=== PATIENT | female | born 1940 | race Caucasian/White ===

== ENCOUNTER 2017-08-10 05:25 | Inpatient (IN) ==
--- NOTE | 2017-08-10 10:04 | Pulmonology History & Physical ---
<Ken Gonzalez - Last Filed: 08/10/17 10:33> Date of Encounter: 08/10/17 Time of Encounter: 09:53 Assessment and Plan (1) GI bleed Current visit: Yes Status: Acute hgb 5.3 on admission. received 1 unit at [place]. 1 week history of melena , and 1 episode of hematoemesis. previously hosp 6-7 years ago for ulcer that was cauterized, has no follow up since. - Surgery consulted for endoscopy, will consider scope after resuscitation - 2 units of pRBC - will follow H/H closely Qualifiers: Qualified Code(s): K92.2 - Gastrointestinal hemorrhage, unspecified (2) NSTEMI (non-ST elevated myocardial infarction) Current visit: Yes Status: Acute [place] EKG ST depressions in trip-lateral leads. Trop on admission 0.10. patient self-reports a previous SC, at [place] imaging did not show previous Stent or ballooning. - serial trops ordered. (3) CLL (chronic lymphocytic leukemia) Current visit: Yes Status: Acute previous reported history of CLL. - consulted heme/onc - will consider ordering FISH CLL workup (4) Anemia Current visit: Yes Status: Acute hgb 5.3 on admission, given 1 unit of pRBC at [place] - trend h/h - 2 units of pRBC ordered Qualifiers: Qualified Code(s): D64.9 - Anemia, unspecified (5) DVT prophylaxis Current visit: Yes Status: Acute due to unknown source of bleed, will use mech vent History of Present Illness Chief complaint: progressive weakness HPI: Ms. Webb is a 77 year old female transferred from [place], 2/2 1 week history of bright red blood in bowel, 1 episode of dark blood vomit, progressively worsening weakness w/ history of CLL and Ulcers. History was gathered from patient, patient's and chart review. Patient decided to go to [facility] ED by ambulance due to excess sweating, she sweat through multiple changes of clothes, and started having trouble breathing. 1 week ago patient first developed a cough with associated Dark blood in her bowels. She had one episode of dark blood vomiting. In ability to consume food due to severe abdominal pains. Patient was hospitalized 6-7 years ago due to a peptic ulcer which was cauterized. She does not take medications at home for ulcers, and does not follow with a physician for her ulcers. She has continued abdominal pain since that admission. She only treats it with Baking soda mixed in with water which temporarily will relieve her pain. During this admission, it was found that patient has CLL, and according to patient and no treatment was considered at that time and or follow up. Patient drink multiple cups of coffee a day. denies EtOH, and quit smoking 7-8 years ago. Patient has history of joint pain which she take 2 extra strength tylenol, motrin once a week, Aleve 2x a day, and has consumed 2 bottles of Nyquil in the last week. Patient currently denies abdominal pain, but does admit to continued weakness. Past Med Surg Social Fam HX - Past Medical History Medical history: other Psychiatric history: no psych history - Social History Smoking Status: Former smoker Smokeless Tobacco Status: No Alcohol use: none Drug use: none Medications and Allergies No Known Home Drugs 08/10/17 [History] 3 Allergy/AdvReac Type Severity Reaction Status Date / Time No Known Allergies Allergy Verified 08/10/17 03:47 All Systems: A 10-system review of systems was performed and is negative for pertinent findings except as documented above in the HPI. - Constitutional Constitutional: chills, excessive sweating, lethargy, night sweats - Cardiovascular Cardiovascular: diaphoresis, dyspnea, lightheadedness, syncope, no chest pain, no edema, no irregular heart rhythm, no radiating jaw, neck or arm pain, no palpitations, no paroxysmal nocturnal dyspnea - Respiratory Respiratory: dyspnea - Gastrointestinal Gastrointestinal: no abdominal pain, no diarrhea, no fecal incontinence, no hematemesis, no hematochezia, no loose stools, no melena, no nausea, no vomiting - Genitourinary Genitourinary: no difficulty urinating, no difficulty voiding, no dysmenorrhea, no flank pain, no hematuria - Musculoskeletal Musculoskeletal: joint pain (patient reports chronic diffuse joint pain) - Neurological Neurological: dizziness, lack of coordination, weakness - Psychiatric Psychiatric: no anxiety, no depression, no mood swings, no panic attacks, no suicidal ideation - Endocrine Endocrine: cold intolerance, excessive sweating - Allergic/Immunologic Allergic/Immunologic: GI upset with certain foods Physical Examination General appearance: no acute distress, alert Eyes: nonicteric ENT: oropharynx dry Effort: normal Inspection: normal Cardiovascular: regular rate and rhythm Gastrointestinal: hypoactive bowel sounds, non-tender, non-distended Integumentary: normal Extremities: no cyanosis, no edema, pulses normal Musculoskeletal: no deformities normal mental status mood appropriate, affect normal <Celia Burton S - Last Filed: 08/10/17 18:14> Date of Encounter: 08/10/17 History of Present Illness HPI: Ms. Webb is a 77 year old female All Systems: A 10-system review of systems was performed and is negative for pertinent findings except as documented above in the HPI. Physical Examination Vital Signs: Vital Signs, Last 4 Hours Temp Pulse Resp BP Pulse Ox 08/10/17 12:00 89 14 126/60 95 08/10/17 11:50 98.1 F 08/10/17 11:00 87 18 144/65 94 08/10/17 10:30 87 08/10/17 10:00 85 20 132/60 95 08/10/17 09:44 97.9 F 83 16 143/61 99 Results - Laboratory Findings CBC and BMP: 08/10/17 11:03 08/10/17 11:03 Abnormal lab findings: Abnormal lab results WBC 56.1 K/mcL (4.3-11.1) H* 08/10/17 11:03 RBC 1.88 M/mcL (3.82-4.97) L 08/10/17 11:03 Hgb 5.7 g/dL (11.5-15.4) L* 08/10/17 11:03 Hct 19.5 % (35.3-44.9) L 08/10/17 11:03 MCV 103.7 fL (83.0-100.0) H 08/10/17 11:03 MCHC 29.2 g/dL (31.6-35.5) L 08/10/17 11:03 RDW 15.4 % (11.5-14.5) H 08/10/17 11:03 Neutrophils # 10.1 K/mcL (1.6-8.9) H 08/10/17 11:03 Lymphocytes # 46.0 K/mcL (0.6-4.6) H 08/10/17 11:03 Nucleated RBCs/100 WBC 0.7 /100 WBC (0) H 08/10/17 11:03 Smudge Cells Present (Not Present) A 08/10/17 11:03 Polychromasia 1+ (Not Present) A 08/10/17 11:03 Chloride 110 mEq/L (98-109) H 08/10/17 11:03 BUN 34 mg/dL (7-20) H D 08/10/17 11:03 BUN/Creatinine Ratio 48 (6-26) H 08/10/17 11:03 Glucose 107 mg/dL (70-99) H 08/10/17 11:03 Calcium 7.9 mg/dL (8.6-10.8) L 08/10/17 11:03 Troponin I 0.22 ng/mL (0-0.03) H* 08/10/17 11:03 Serum Total Protein 5.0 g/dL (6.0-8.3) L 08/10/17 11:03 Albumin 2.6 g/dL (3.5-5.0) L 08/10/17 11:03 TSH 0.247 mcIU/mL (0.350-4.840) L 08/10/17 11:03 - Attending Attestation I saw the patient with the resident agree with History and Physical exam findings. Labs and Radiology were reviewed Patient is spontaneously breathing on Nasal Cannula SCAGLIOLA MECHANIC: Patient is conscious oriented x3 following commands NECK : No JVD appreciated Pulmonary : Patient doesnt have any active symptoms of pneumonia or heart failure will continue wean O2 as able Cardiac : Patient is hemodynamically stable , Because of this acute blood loss anemia patient has some ischemic changes will trend troponin's most likely due to supply demand mismatch . Nutrition/GI: Patient will keep her NPO PPI . If stable will give a clear liquid diet . Consulted Endoscopist cash on delivery clerk .Will give total of 3 units will aim for HB of 8 Renal : Labs and Output reviewed Heme onc : Patient has previous diagnosis of CLL with baseline WBC count is around 41 , during this admission was 69 dropped down to 56 , patient has B symptoms concern for lymphoma transformation will consult heme onc ID : No acute issues Musculo skeletal / skin issues Disposition : Stable to the floor Code status: Full Code Family/POA:
[2017-08-10 11:20] LABS: Nucleated Red Blood Cells 0.7 /100 WBC (0)
[2017-08-10 11:22] LABS: Hematocrit 19.5 % (35.3-44.9); Mean Corpuscular HGB Conc 29.2 g/dL (31.6-35.5); Mean Corpuscular Hemoglobin 30.3 pg (28.0-33.3); Mean Corpuscular Volume 103.7 fL (83.0-100.0); Mean Platelet Volume 9.6 fL (9.4-12.4); Platelet Count 337 K/mcL (140-400); Red Blood Count 1.88 M/mcL (3.82-4.97); Red Cell Distribution Width 15.4 % (11.5-14.5)
[2017-08-10 11:32] LABS: Alanine Aminotransferase 8 Units/L (0-55); Albumin 2.6 g/dL (3.5-5.0); Albumin/Globulin Ratio 1.1 (1.1-2.2); Alkaline Phosphatase 56 Units/L (38-126); Aspartate Amino Transferase 12 Units/L (5-34); BUN/Creatinine Ratio 48 (6-26); Bilirubin,Total 0.2 mg/dL (0.2-1.2); Blood Urea Nitrogen 34 mg/dL (7-20); Calcium 7.9 mg/dL (8.6-10.8); Carbon Dioxide 22 mEq/L (19-29); Chloride 110 mEq/L (98-109); Globulin 2.4 g/dL (2.4-3.5); Glucose 107 mg/dL (70-99); Osmolality,Calculated 298 (280-300); Potassium 4.3 mEq/L (3.5-4.5); Sodium 140 mEq/L (136-145); eGFR For African Americans > 60 (> 60); eGFR For Non-African Americans > 60 (> 60)
[2017-08-10 11:33] LABS: Hemoglobin 5.7 g/dL (11.5-15.4)
[2017-08-10 11:49] LABS: Neutrophils # 10.1 K/mcL (1.6-8.9); Platelet Estimate Normal (Normal); Smudge Cells Present (Not Present)
[2017-08-10 11:50] LABS: Polychromasia 1+ (Not Present)
[2017-08-10 12:10] LABS: Albumin 2.6 g/dL (3.5-5.0); Albumin/Globulin Ratio 1.1 (1.1-2.2); Bilirubin,Direct 0.1 mg/dL (0.0-0.5); Bilirubin,Indirect 0.1 mg/dL (0.0-1.2); Bilirubin,Total 0.2 mg/dL (0.2-1.2); Globulin 2.4 g/dL (2.4-3.5)
[2017-08-10] MEDS ORDERED: 0.9 % Sodium Chloride 250 ML ONE (14:02)
[2017-08-10] MEDS ORDERED: Furosemide 40 MG/4 ML VIAL IVP ONE (16:26)
[2017-08-10] MEDS: Pantoprazole 40 MG VIAL IVP SCH (17:08)
[2017-08-11 00:53] LABS: Hematocrit 26.1 % (35.3-44.9); Hemoglobin 8.4 g/dL (11.5-15.4); Mean Corpuscular HGB Conc 32.2 g/dL (31.6-35.5); Mean Corpuscular Hemoglobin 30.3 pg (28.0-33.3); Mean Corpuscular Volume 94.2 fL (83.0-100.0); Mean Platelet Volume 9.3 fL (9.4-12.4); Platelet Count 373 K/mcL (140-400); Red Blood Count 2.77 M/mcL (3.82-4.97); Red Cell Distribution Width 16.7 % (11.5-14.5)
[2017-08-11 01:07] LABS: BUN/Creatinine Ratio 29 (6-26); Calcium 8.3 mg/dL (8.6-10.8); Carbon Dioxide 25 mEq/L (19-29); Chloride 109 mEq/L (98-109); Glucose 98 mg/dL (70-99); Osmolality,Calculated 295 (280-300); Sodium 141 mEq/L (136-145); eGFR For African Americans > 60 (> 60); eGFR For Non-African Americans > 60 (> 60)
[2017-08-11 01:08] LABS: Blood Urea Nitrogen 22 mg/dL (7-20)
[2017-08-11] MEDS: Pantoprazole 40 MG VIAL IVP SCH ×2 (06:25→17:26)
[2017-08-11] MEDS ORDERED: *HR* Morphine 2 MG/ML SYRINGE IVP PRN (07:50)
[2017-08-11] MEDS ORDERED: Acetaminophen 325 MG TABLET PO PRN (07:50)
[2017-08-11] MEDS ORDERED: *HR* OxyCODONE/APAP 5/325 TABLET PO PRN (07:50)
--- NOTE | 2017-08-11 08:00 | Internal Med Progress Note ---
Date of Encounter: 08/11/17 Time of Encounter: 07:55 - Assessment and plan (1) Acute blood loss anemia Current Visit: Yes Status: Acute Assessment and plan: Pt does have symptomatic anemia Hb improved to 8.4 after 2 U PRBC cont close monitoring H/H check Iron panel Consulted GI for possible EGD and Colonoscopy in AM Keep NPO after mid night full liquid diet cont Protonix 40mg IV BID Avoid any NSAID/ ASA / Anticoags d/c bojorquez cath Pt is medically stable to transfer to floor / tele (2) Acute GI bleeding Current Visit: Yes Status: Acute Assessment and plan: Mostly upper GI bleed.. however concerned for lower too with bright red blood per rectum consulted GI for further work up cont close monitoring (3) NSTEMI (non-ST elevated myocardial infarction) Current Visit: Yes Status: Acute Assessment and plan: Troponin trended high 0.1->0.22->0.35->0.39 Pt denied any CP actively and with in last few days EKG this morning showed NSR with VR 72, mild ST depression and T wave inversion noticed in lateral leads she may need stress test at some point will consult card for further work up will get 2 D Echo now unable to give ASA due to GI bleed (4) CLL (chronic lymphocytic leukemia) Current Visit: Yes Status: Acute Assessment and plan: Consulted Heme Onc regarding her CLL (5) DVT prophylaxis Current Visit: Yes Status: Acute Assessment and plan: on SCD's only - Subjective Interval history: Ms. Webb is a 77 year old female transferred from [place], due to 1 week history of bright red blood in bowel, 1 episode of dark blood vomit, progressively worsening weakness w/ history of CLL and gastric ulcers. pt denied of taking any ASA / blood thinner medication. She denied of any CP, however does have WHITTEN and generalized weakness. She did mentions of taking Alieve or Tylenol once a week for her low back pain. Pt happened to have severe symptomatic anemia with Hb 5.3 and elevated troponin with EKG changes. Pt did receive 2 U PRBC here now her Hb is at 8.4 This morning pt is more alert, awake and O x 3. Denied any CP. Had 1BM last night, but not bright red blood/ no melena noticed as per pt. No N/V. - Constitutional Vitals: Temp Pulse Resp BP Pulse Ox 98.5 F 73 20 137/66 98 08/11/17 04:59 08/11/17 07:00 08/11/17 07:00 08/11/17 07:00 08/11/17 07:00 General appearance: Present: A&O X 3, no acute distress, answers questions appropriately - Head Head exam: Present: atraumatic, normal inspection - Neck Neck exam general surgery: Present: supple - Respiratory Respiratory exam: Present: decreased breath sounds. Absent: rales, respiratory distress, rhonchi, wheezes - Cardiovascular Cardiovascular exam: Present: RRR, +S1, +S2. Absent: systolic murmur - GI/Abdominal GI/Abdominal exam: Present: normal bowel sounds, soft. Absent: rebound, rigid, tenderness - Extremities Exam Extremities exam: Absent: calf tenderness, pedal edema, tenderness - Back Exam Back exam: Absent: CVA tenderness (L), CVA tenderness (R) - Neurological Exam Neurological exam: Present: alert, oriented X3 - Psychiatric Psychiatric exam: Present: normal affect, normal mood - Skin Skin exam: Present: pallor Internal Medicine: Result - Labs CBC & Chem 7: 08/11/17 00:45 08/11/17 00:45 Labs: Short CBC 08/10/17 08/11/17 Range/Units 11:03 00:45 WBC 56.1 H* 63.3 H* (4.3-11.1) K/mcL Hgb 5.7 L* 8.4 L D (11.5-15.4) g/dL Hct 19.5 L 26.1 L (35.3-44.9) % Plt Count 337 373 (140-400) K/mcL Neutrophils # 10.1 H (1.6-8.9) K/mcL BMP 08/10/17 08/11/17 11:03 00:45 Sodium 140 141 Potassium 4.3 4.0 Chloride 110 H 109 Carbon Dioxide 22 25 BUN 34 H D 22 H D Creatinine 0.71 0.76 Glucose 107 H 98 Calcium 7.9 L 8.3 L Cardiac Enzymes 08/10/17 08/10/17 08/11/17 Range/Units 11:03 17:56 00:45 Troponin I 0.22 H* 0.35 H* 0.39 H* (0-0.03) ng/mL Liver Function 08/10/17 08/10/17 Range/Units 11:03 11:03 Total Bilirubin 0.2 0.2 (0.2-1.2) mg/dL Direct Bilirubin 0.1 (0.0-0.5) mg/dL AST 12 11 (5-34) Units/L ALT 8 7 (0-55) Units/L Alkaline Phosphatase 56 56 (38-126) Units/L Albumin 2.6 L 2.6 L (3.5-5.0) g/dL - VTE Documentation of Mechanical Device: Intermittent pneumatic compression device Consult Discharge Plan - Plan Referrals: NONE,PCP [Primary Care Provider] - Calvin Godwin, MATERIAL HANDLER 2ND SHIFT [Family Provider] -
[2017-08-11] MEDS ORDERED: Furosemide 40 MG/4 ML VIAL IVP SCH (09:00)
--- NOTE | 2017-08-11 10:07 | Cardiology Consult Note ---
Date of Encounter: 08/11/17 Time of Encounter: 09:45 Assessment and Plan (1) Elevated troponin Current Visit: Yes Status: Acute ECG changes and mildly elevated troponin are consistent with demand ischemia in the setting of severe anemia (Hgb 5.3 on admission). Her presentation is not consistent with plaque-rupture ACS. I agree with checking a TTE to assess her cardiac structure and function. If TTE is unremarkable, then no further cardiac testing would be necessary at this time. Discussion w patient/family: The assessment and plan as outlined above was discussed with the patient and/or family members who expressed understanding and agreement. All questions were answered. Thank you for involving us in the care of your patient. Please call with any questions. History of Present Illness Consult date: 08/11/17 Requesting physician: Herminia Chapman Consult reason: elevated troponin in setting of severe GI bleed Chief complaint: rectal bleeding History of present illness: Ms. Webb is a 77 year old female who reports rectal bleeding for the last 5 days. Upon presentation to the ED, she was found to be severely anemic with Hgb 5.3. She reports dizziness upon standing. She denies any chest pain, dyspnea, leg swelling, or other cardiac symptoms. Cardiology consulted due to ST-T wave changes on ECG and mildly elevated troponin. Patient reports having a heart attack at age 34, but denies any heart problems since then. Past Med Surg Social Fam HX - Past Medical History Medical history: other (CLL, ulcers) Psychiatric history: no psych history - Past Surgical History Surgical History: cholecystectomy, hysterectomy - Social History Smoking Status: Former smoker Smokeless Tobacco Status: No Alcohol use: none Drug use: none - Family History Mother Name: February Living Status: Age at : 78 Cause of : colon cancer Hx Family Cardiac Disorders: No Hx Family Respiratory Disorders: No Hx Family Cancer: Yes Hx Family GI Disorders: Yes Hx Family Genitourinary Disorders: No Hx Family Endocrine Disorder: No Hx Family Musculoskeletal Disorders: No Hx Family Neuromuscular Disorders: No Hx Family Neurologic Disorders: No Hx Family HEENT Disorders: No Hx Family Autoimmune Disorders: No Hx Family Reproductive Disorders: No Hx Family Psychosocial Disorders: No Hx Family Medical Disorders: No Medications and Allergies No Known Home Drugs 08/10/17 [History] 3 Allergy/AdvReac Type Severity Reaction Status Date / Time No Known Allergies Allergy Verified 08/10/17 03:47 All Systems Review: A 10-system review of systems was performed and is negative for pertinent findings except as documented above in the HPI. Physical Examination Vital Signs, Last 4 Hours Temp Pulse Resp BP Pulse Ox 08/11/17 09:00 68 17 117/48 95 08/11/17 08:00 95 12 131/71 96 08/11/17 07:58 98.2 F 08/11/17 07:30 95 08/11/17 07:00 73 20 137/66 98 General: Conversant, No Apparent Distress HEENT: Atraumatic, Normocephaly, Mucus Membranes Moist Neck: Normal carotid pulses, Other (no carotid bruits) Cardiac: Reg Rate and Rhythm, Normal S1 and S2, No Murmur Lungs: Normal Breath Sounds, No Wheeze, Rales, Rhonchi Neuro: Alert and responsive, No focal deficits noted Abdomen: Other (deferred) Skin: No rashes noted on visualized skin Extremities: No Clubbing, No Cyanosis, Other (trace to 1+ edema bilaterally) Results 08/11/17 00:45 08/11/17 00:45 Lab Results 08/10/17 08/10/17 08/10/17 11:03 11:03 11:03 WBC 56.1 H* Hgb 5.7 L* Hct 19.5 L Plt Count 337 Sodium 140 Potassium 4.3 Chloride 110 H Carbon Dioxide 22 BUN 34 H D Creatinine 0.71 Glucose 107 H Calcium 7.9 L Total Bilirubin 0.2 AST 12 ALT 8 Alkaline Phosphatase 56 Troponin I TSH 0.247 L 08/10/17 08/10/17 08/10/17 11:03 11:03 17:56 WBC Hgb Hct Plt Count Sodium Potassium Chloride Carbon Dioxide BUN Creatinine Glucose Calcium Total Bilirubin 0.2 AST 11 ALT 7 Alkaline Phosphatase 56 Troponin I 0.22 H* 0.35 H* TSH 08/11/17 08/11/17 08/11/17 00:45 00:45 00:45 WBC 63.3 H* Hgb 8.4 L D Hct 26.1 L Plt Count 373 Sodium 141 Potassium 4.0 Chloride 109 Carbon Dioxide 25 BUN 22 H D Creatinine 0.76 Glucose 98 Calcium 8.3 L Total Bilirubin AST ALT Alkaline Phosphatase Troponin I 0.39 H* TSH - EKG Interpretation EKG results cardiology: personally reviewed (sinus tachycardia with diffuse ST- T wave abnormalities, sinus rhythm with diffuse ST-T wave abnormalities) Consult Discharge Plan - Plan Referrals: NONE,PCP [Primary Care Provider] - Calvin Godwin, GROUP EXERCISE CLASS INSTRUCTOR [Family Provider] -
[2017-08-11] MEDS ORDERED: *HR* Midazolam HCl 5 MG/5 ML VIAL IVP ONE (10:43)
[2017-08-11] MEDS ORDERED: *HR* FentaNYL (PF) 100 MCG/2 ML VIAL ONE (10:44)
[2017-08-11] MEDS ORDERED: 0.9 % Sodium Chloride 1,000 ML ONE (10:44)
[2017-08-11] MEDS ORDERED: *HR* FentaNYL (PF) 100 MCG/2 ML VIAL IVP PRN (11:25)
[2017-08-11] MEDS ORDERED: *HR* Midazolam HCl 5 MG/5 ML VIAL IVP PRN (11:25)
[2017-08-11 12:11] LABS: Hematocrit 24.8 % (35.3-44.9); Hemoglobin 7.9 g/dL (11.5-15.4)
[2017-08-11 12:43] LABS: Thyroid Stimulating Hormone 1.516 mcIU/mL (0.350-4.840)
[2017-08-11 16:05] LABS: Folate 5.8 ng/mL (7.0-31.4)
[2017-08-11] MEDS: Sucralfate 1 GM TABLET PO SCH ×2 (17:26→23:21)
--- NOTE | 2017-08-11 18:18 | Oncology Inp Consult Note ---
Date of Encounter: 08/12/17 Time of Encounter: 18:16 Assessment and Plan (1) CLL (chronic lymphocytic leukemia) Status: Acute Assessment and plan: CLL likely stage 0. Did not have any CAT scan to assess for lymphadenopathy. We will do CAT scans as an outpatient No acute intervention necessary at this time (2) GI bleed Status: Acute Assessment and plan: GI bleed and acute anemia. Post 2 units of packed RBC transfusion Baseline macrocytosis. Folic acid low at 5.8. We will do anemia workup. Replace folate and iron. B12 boderline at 230. B12 1000 mcg. IM She had EGD this AM showed gastic ulcer. Avoid coffee. She doesn't smoke or drink alohol. Colonoscopy as an outpatient. Qualifiers: Qualified Code(s): K92.2 - Gastrointestinal hemorrhage, unspecified - Data of Consult Patient: new to practice Requesting Physician: Herminia Chapman MD Primary Care Provider: PCP NONE Family Provider: Calvin Godwin CNP - Consult Narrative Reason for consult: Acute anemia, CLL History of present illness: Ms. Webb is a 77 year old female admitted with fresh blood in the stools or black colored vomiting. Was 5.3. She received 2 units of packed RBC transfusion current hemoglobin of 7.9. She also had troponin peak of 0.39 could be from stress ischemia. Cardiology was consulted. Echocardiogram 08/11/2017 showed ejection fraction 60%. Moderate concentric left ventricular hypertrophy. Moderate aortic stenosis and mild aortic regurgitation. Also some ST changes reported She also has history of CLL. Lymphocyte counts 13,000 09/03/2014 was 31,000 on 09/07/2014. No value since then and currently 46,000. Rest of WBCs unremarkable. Platelets normal. Admission her MCV was 102 and folate level at 5.8. Lasix folic acid. If she continued to have macrocytic anemia may consider bone marrow biopsy Oncological history Patient was evaluated by Dr. Templeton on October 2010 Flow cytometry report that was given by [place], they say that CLL is most likely, but not totally definitive since it is CD5 negative. There is a small possibility it could be a problem such as marginal zone lymphoma or lymphoplasmacytic lymphoma. He does not look like she had follow-up since then Past Med Surg Social Fam HX - Past Medical History Medical history: other (CLL, ulcers) Psychiatric history: no psych history - Past Surgical History Surgical History: cholecystectomy, hysterectomy - Social History Smoking Status: Former smoker Smokeless Tobacco Status: No Alcohol use: none Drug use: none - Family History Mother Name: May Living Status: Age at : 78 Cause of : colon cancer Hx Family Cardiac Disorders: No Hx Family Respiratory Disorders: No Hx Family Cancer: Yes Hx Family GI Disorders: Yes Hx Family Genitourinary Disorders: No Hx Family Endocrine Disorder: No Hx Family Musculoskeletal Disorders: No Hx Family Neuromuscular Disorders: No Hx Family Neurologic Disorders: No Hx Family HEENT Disorders: No Hx Family Autoimmune Disorders: No Hx Family Reproductive Disorders: No Hx Family Psychosocial Disorders: No Hx Family Medical Disorders: No Medications and Allergies Cyanocobalamin (Vitamin B-12) [Vitamin B-12] 100 mcg PO DAILY #30 tablet [Rx] Folic Acid 1 mg PO DAILY #30 tablet 08/12/17 [Rx] Omeprazole [PriLOSEC] 40 mg PO DAILY #30 cap 08/12/17 [Rx] Sucralfate [Carafate] 1 gm PO QIDAC #120 tablet 08/12/17 [Rx] 3 Allergy/AdvReac Type Severity Reaction Status Date / Time No Known Allergies Allergy Verified 08/10/17 03:47 All systems: reviewed and no additional remarkable complaints except as stated Review of systems: No major shortness of breath. She is doing fairly well since 2 units of packed RBC transfusion denied chest pain.Denied N denied taking NSAIDsSAIDS. She drinks coffee Oncology - Exam - Constitutional Vitals: Temp Pulse Resp BP Pulse Ox 97.7 F 67 12 118/67 95 08/11/17 16:38 08/11/17 16:38 08/11/17 16:38 08/11/17 16:38 08/11/17 16:38 Exam: GENERAL: Alert and oriented, well appearing. Mental Status: Affect appropriate for circumstances HEENT: Sclerae anicteric. No mucositis or thrush. No other oral or pharyngeal lesions or erythema. Skin: No rashes or petechiae. No evidence of skin malignancy Lymph nodes: No cervical, supraclavicular, axillary, or inguinal adenopathy. Lungs: Air entry normal with normal breath sounds. No rhonchi or wheezing Cardiovascular: Regular rate and rhythm. No skipped beats Abdomen: Soft, nontender; no organomegaly or masses palpable. Extremities: No edema. No calf swelling or tenderness. No joint deformity. Neurologic: Alert, cranial nerves II-XII intact; normal gait; no focal weakness or sensory abnormalities Oncology - Results Labs: Short CBC 08/11/17 08/11/17 Range/Units 00:45 12:03 WBC 63.3 H* (4.3-11.1) K/mcL Hgb 8.4 L D 7.9 L (11.5-15.4) g/dL Hct 26.1 L 24.8 L (35.3-44.9) % Plt Count 373 (140-400) K/mcL BMP 08/11/17 00:45 Sodium 141 Potassium 4.0 Chloride 109 Carbon Dioxide 25 BUN 22 H D Creatinine 0.76 Glucose 98 Calcium 8.3 L Cardiac Enzymes 08/10/17 08/11/17 Range/Units 17:56 00:45 Troponin I 0.35 H* 0.39 H* (0-0.03) ng/mL Consult Discharge Plan - Plan Instructions: Sucralfate (By mouth), Omeprazole (By mouth), Folic Acid (By mouth), Vitamin B-12 (Cyanocobalamin) (By mouth), Peptic Ulcer (DC), Gastrointestinal Bleeding (DC) Additional Instructions: Please f/u with Dr. Bundy in 1-2 weeks for possible colonoscopy as an out pt Please f/u with Heme Onc Dr. Dial in 2-3 weeks for further work up regarding your CLL Please f/u with Cardiology Dr. Chamorro in 2-3 weeks for f/u Referrals: Moses Bundy DO [Partnered Physician] - 08/27/17 3:50 pm Elie Dial MD [Partnered Physician] - 09/09/17 8:30 am Celio Chamorro MD [Partnered Physician] - (office will call patient at home with appointment date and time) Calvin Godwin CNP [Family Provider] - 08/21/17 2:00 pm Prescriptions: Cyanocobalamin (Vitamin B-12) [Vitamin B-12] 100 mcg PO DAILY #30 tablet Folic Acid 1 mg PO DAILY #30 tablet Omeprazole [PriLOSEC] 40 mg PO DAILY #30 cap Sucralfate [Carafate] 1 gm PO QIDAC #120 tablet
[2017-08-11] MEDS ORDERED: Cyanocobalamin (B-12) 1,000 MCG/ML VIAL IM ONE (18:22)
[2017-08-11] MEDS ORDERED: Folic Acid 1 MG in D5% in Water 50 ML IVPB STA (18:22)
[2017-08-11 20:10] LABS: Hematocrit 24.8 % (35.3-44.9); Hemoglobin 7.9 g/dL (11.5-15.4)
[2017-08-12 03:59] LABS: Eosinophils % 0.5 %; Hematocrit 24.7 % (35.3-44.9); Hemoglobin 7.8 g/dL (11.5-15.4); Immature Granulocytes % 1.9 % (0-4); Mean Corpuscular HGB Conc 31.6 g/dL (31.6-35.5); Mean Platelet Volume 9.6 fL (9.4-12.4); Nucleated Red Blood Cells 0.3 /100 WBC (0)
[2017-08-12 04:01] LABS: Basophils # 0.1 K/mcL (0.0-0.2); Basophils % 0.1 %; Eosinophils # 0.3 K/mcL (0.0-0.6); Lymphocytes % 74.4 %; Mean Corpuscular Hemoglobin 30.4 pg (28.0-33.3); Mean Corpuscular Volume 96.1 fL (83.0-100.0); Monocytes % 1.9 %; Neutrophils # 11.5 K/mcL (1.6-8.9); Platelet Count 349 K/mcL (140-400); Red Blood Count 2.57 M/mcL (3.82-4.97); Red Cell Distribution Width 18.3 % (11.5-14.5); Segmented Neutrophils % 21.2 %
[2017-08-12 04:14] LABS: BUN/Creatinine Ratio 23 (6-26); Blood Urea Nitrogen 17 mg/dL (7-20); Calcium 8.3 mg/dL (8.6-10.8); Carbon Dioxide 21 mEq/L (19-29); Chloride 109 mEq/L (98-109); Glucose 94 mg/dL (70-99); Osmolality,Calculated 291 (280-300); Potassium 3.7 mEq/L (3.5-4.5); Sodium 140 mEq/L (136-145); eGFR For African Americans > 60 (> 60); eGFR For Non-African Americans > 60 (> 60)
[2017-08-12 04:33] LABS: Lymphocytes # 40.5 K/mcL (0.6-4.6)
[2017-08-12 04:39] LABS: Anisocytosis 2+ (Not Present); Macrocytosis Present (Not Present); Polychromasia 2+ (Not Present)
[2017-08-12 04:40] LABS: Large Platelets Present (Not Present); Platelet Estimate Normal (Normal); Smudge Cells Present (Not Present)
[2017-08-12] MEDS: Pantoprazole 40 MG VIAL IVP SCH (05:07)
[2017-08-12 07:02] VITALS: BP 130/67
--- NOTE | 2017-08-12 08:36 | Discharge Summary ---
Date of Encounter: 08/12/17 Time of Encounter: 08:33 - Discharge Diagnosis (1) Acute blood loss anemia Priority: Primary Status: Acute (2) Acute GI bleeding Priority: Primary Status: Acute (3) NSTEMI (non-ST elevated myocardial infarction) Priority: Primary Status: Acute (4) CLL (chronic lymphocytic leukemia) Priority: Secondary Status: Acute (5) DVT prophylaxis Priority: Secondary Status: Acute (6) Gastric ulcer Priority: Secondary Status: Acute Qualifiers: Gastric ulcer chronicity: acute Gastric ulcer complication status: without hemorrhage or perforation Qualified Code(s): K25.3 - Acute gastric ulcer without hemorrhage or perforation - Discharge Medications Prescriptions: Cyanocobalamin (Vitamin B-12) [Vitamin B-12] 100 mcg PO DAILY #30 tablet Folic Acid 1 mg PO DAILY #30 tablet Omeprazole [PriLOSEC] 40 mg PO DAILY #30 cap Sucralfate [Carafate] 1 gm PO QIDAC #120 tablet Home Medications: Cyanocobalamin (Vitamin B-12) [Vitamin B-12] 100 mcg PO DAILY #30 tablet [Rx] Folic Acid 1 mg PO DAILY #30 tablet 08/12/17 [Rx] Omeprazole [PriLOSEC] 40 mg PO DAILY #30 cap 08/12/17 [Rx] Sucralfate [Carafate] 1 gm PO QIDAC #120 tablet 08/12/17 [Rx] Allergies/Adverse Reactions: 3 Allergy/AdvReac Type Severity Reaction Status Date / Time No Known Allergies Allergy Verified 08/10/17 03:47 Procedures/tests Complete & Pending: Procedures Performed prior 72 hours Category Date Time Status EKG [ECG 12 lead ECG] [ECG] Stat Y 08/11/17 08:32 Completed EV echocardiogram Routine Y 08/11/17 08:10 Completed Date of admission: 08/10/17 09:31 Primary care physician: PCP NONE Consults: 08/10/17 10:30 Consult to Gastroenterology [CONS] Routine Consulting Provider: Gastroenterology Mariya Reason for Consult: GI bleed of unknown origin Call Completed: Yes 08/10/17 10:31 Consult to Oncology [CONS] Routine Consulting Provider: [facility] Reason for Consult: Hx of CLL Call Completed: Yes 08/11/17 07:54 Consult to Cardiology [CONS] Routine Comment: Consulting Provider: Cardiology Mariya Reason for Consult: Severe anemia, Acute NSTEMI with EKG changes Call Completed: Yes 08/11/17 10:55 Consult to Surgery [CONS] Routine Consulting Provider: Surgery [facility] Reason for Consult: GI bleed Call Completed: Yes - Patient Status Disposition: Home, Self-Care Condition: Good Overall status at discharge: patient is back to baseline - Discharge Instructions Follow Up With: Calvin Godwin CNP [Family Provider] - Moses Bundy DO [Partnered Physician] - Celio Chamorro MD [Partnered Physician] - Elie Dial MD [Partnered Physician] - Additional Instructions: Please f/u with Dr. Matson in 1-2 weeks for possible colonoscopy as an out pt Please f/u with Heme Onc Dr. Dial in 2-3 weeks for further work up regarding your CLL Please f/u with Cardiology Dr. Chamorro in 2-3 weeks for f/u - Diet and Activity Activity: increase activity as tolerated Diet: low salt diet Hospital course: Ms. Webb is a 77 year old female transferred from [place], due to 1 week history of bright red blood in bowel, 1 episode of dark blood vomit, progressively worsening weakness w/ history of CLL and gastric ulcers. pt denied of taking any ASA / blood thinner medication. She denied of any CP, however does have WHITTEN and generalized weakness. She did mentions of taking Alieve or Tylenol once a week for her low back pain. Pt happened to have severe symptomatic anemia with Hb 5.3 and elevated troponin with EKG changes. Pt was admitted to ICU initially. She was started on IV hydration, IV PPI BID and did receive 2 U PRBC here. Now her Hb improved and stable at 7.8. She did go for EGD y/d by Dr. Matson which showed gastric ulcer. He recommend to start her on Carafate and PPI. She also happened to have low folate and borderline B12 levels. She recieved B12 IM x 1 inj and Folic acid IV x 1 dose. Regarding her slightly elevated Trop with mild EKG chanhes which are compatible with severe demand ischemia with anemia. Her 2 D Echo showed preserved LVEF and mild LV diastolic dysfunction. No septal motion abnormality noticed. Pt was seen by applied mathematician who recommend to f/u with them as an out pt in 2-3 weeks. Regarding her CLL pt was seen by [facility], who recommend to f/u with them as an out pt for further work up. - Time Spent with Patient Total time spent providing and/or coordinating discharge services: - Constitutional Vitals: Temp Pulse Resp BP Pulse Ox 98.1 F 79 15 130/67 93 08/12/17 06:57 08/12/17 06:57 08/12/17 06:57 08/12/17 06:57 08/12/17 06:57 General appearance: Present: A&O X 3, no acute distress, answers questions appropriately - Head Head exam: Present: atraumatic, normal inspection - Respiratory Respiratory exam: Present: CTAB. Absent: accessory muscle use, rales, rhonchi, wheezes - Cardiovascular Cardiovascular exam: Present: RRR, +S1, +S2. Absent: diastolic murmur, gallop, rubs, systolic murmur - GI/Abdominal GI/Abdominal exam: Present: normal bowel sounds, soft, no peritoneal signs. Absent: distended, tenderness - Extremities Exam Extremities exam: Absent: calf tenderness, pedal edema, tenderness - Back Exam Back exam: Absent: CVA tenderness (L), CVA tenderness (R) - Neurological Exam Neurological exam: Present: alert, oriented X3 - Psychiatric Psychiatric exam: Present: normal affect, normal mood - VTE Documentation of Mechanical Device: Intermittent pneumatic compression device
[2017-08-12] MEDS ORDERED: Iron Sucrose Complex 250 MG in 0.9 % Sodium Chloride 250 ML IVPB SCH (09:00)
[2017-08-12] MEDS: Sucralfate 1 GM TABLET PO SCH ×2 (11:34→11:35)
--- NOTE | 2017-08-12 14:40 | Electrocardiograph Report ---
[place] [id number] Test Date: 2017-08-11 Pat Name: Giovanna Webb Department: 109 Room: 2NE32 Gender: F Cashier: LIZ : 1940 Requested By: Herminia Chapman Order Number: [id number] Reading MD: Chacha Barillas Measurements Intervals [place] Rate: 72 P: 38 AK: 159 QRS: 74 QRSD: 97 T: 162 QT: 359 QTc: 384 Interpretive Statements SINUS RHYTHM ST DEVIATION AND MODERATE T-WAVE ABNORMALITY, CONSIDER LATERAL ISCHEMIA ST DEVIATION AND MODERATE T-WAVE ABNORMALITY, CONSIDER INFERIOR ISCHEMIA Electronically Signed On 08-12-2017 14:38:51 EDT by Chacha Barillas
--- NOTE | 2017-08-13 14:27 | Operative Note ---
Date of procedure: 08/11/17 Pre-op diagnosis: Melena Post-op diagnosis: same Procedure: EGD with CLOtest biopsy Anesthesia: IV sedation Surgeon: Moses Bundy Estimated blood loss (cc): 5 Specimen: Bibiana Test Disposition: same day Procedure in Detail: After informed consent, the patient was taken to the endoscopy suite and placed in left lateral decubitus position. After adequate sedation the endoscope was inserted and oropharynx. The esophagus was intubated. Entire length the esophagus was normal. The GE junction was normal. The gastric body appeared to be normal. The scope was then passed through the pylorus. In the anterior segment of the duodenal bulb a cratered ulcer was identified to be approximately a centimeter in size. There is no active bleed. Second and third portions of duodenum were normal. The scope was then brought back within the stomach. Scope was retroflexed. No hiatal hernia was identified. A biopsy of the antrum was performed for CLOtest. At this point the procedure was terminated. Impression: 1. Pyloric channel ulcer. Proceed with gastric diet and Carafate therapy.
== END 2017-08-12 12:30 | disposition home or self-care (01) | DRG 281 ==
LOC: SUATTDRO 09:31 → ICNU 09:31 → 2NENU 08-11 15:37
PROVIDERS: ADMIT Hospitalist; ATTEND Family Medicine
PROC: ENDOEBX (2017-08-11 10:30)